=== PATIENT | male | born 1955 | race Caucasian/White ===

== ENCOUNTER 2019-08-14 09:07 | Day surgery (SDC) | payer OTHER ==
--- NOTE | 2019-08-14 07:57 | HP ---
DATE OF SURGERY: 08/14/2019 HISTORY OF PRESENT ILLNESS: The patient is a 64 year-old with no bloody stools, no pain, no change in bowel movements. Family history negative for colon cancer. The patient has history of polyps in the past and is in need of follow up screening colonoscopy. PAST MEDICAL HISTORY: Hypertension, reflux, celiac disease. History of polyps in the past. 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 PAST SURGICAL HISTORY: Hernia repair. Tonsillectomy. Colonoscopy in the past. Prior push enteroscopy for celiac disease in the past. MEDICATIONS: Omeprazole, lisinopril. ALLERGIES: NKDA. FAMILY HISTORY: Heart disease, prostate cancer. Family history negative for colon cancer. SOCIAL HISTORY: He denies smoking. Alcohol use - Two drinks a day, denies abuse. REVIEW OF SYSTEMS: Fourteen systems reviewed. No chest pain or palpitations other systems negative or noncontributory as above and per preadmission questionnaire. PHYSICAL EXAMINATION: GENERAL: No acute distress. HEENT: Sclerae nonicteric. NECK: No JVD. CHEST: Equal excursion, nonlabored breathing. CVS: Regular rate and rhythm. ABDOMEN: Soft, nontender. No peritoneal signs. EXTREMITIES: No significant edema. NEURO: Alert, oriented, moving extremities symmetrically. No gross motor deficits noted. RECTAL: Deferred timed to endoscopy exam. IMPRESSION: History of polyps and in need of follow up screening colonoscopy. I feel he is a candidate. Risks and benefits explained in detail including but not limited to bleeding or infection, risk of bowel injury or perforation possibly requiring open procedure, risk of missed or nondiagnosis or incomplete exam possibly requiring barium enema, other studies or procedures, general risk of anesthesia or sedation, risk of bowel prep but not limited to. He understands and agrees to the planned procedure and will proceed with outpatient follow up screening colonoscopy.
[2019-08-14] MEDS ORDERED: VERSED 5 MG/5 ML IV ONE (09:08)
[2019-08-14] MEDS ORDERED: DEMEROL 50 MG SDV IJ ONE (09:08)
[2019-08-14] MEDS ORDERED: Lactated Ringers 1,000 ML IV SCH (09:30)
[2019-08-14 12:22] VITALS: O2SAT 95
[2019-08-14 13:08] VITALS: BP 129/92; PULSE 91
--- NOTE | 2019-08-15 08:23 | OP ---
SURGERY DATE/TIME: 08/14/2019 1108 PREOPERATIVE DIAGNOSIS: History of polyp, need follow up screening colonoscopy. POSTOPERATIVE DIAGNOSES: 1) Small polyp transverse colon x2. 2) Sigmoid colon x1. 3) Diverticulosis. 4) Fair bowel prep. 5) ASA class II. 6) Withdrawal time 10 minutes. PROCEDURES: 1) Colonoscopy to cecum. 2) Hot biopsy removal transverse colon polyp x2. 3) Hot biopsy removal sigmoid colon early polyp versus hyperplastic lesion x1. SURGEON: Dr. Keith Narvaez. ANESTHESIA: Surgeon monitored IV conscious sedation IV Demerol 5 mg and Versed 4 mg. IV conscious sedation monitoring 15 minutes. ESTIMATED BLOOD LOSS: Minimal. INDICATIONS: As noted above. Risks and benefits explained in detail but not limited to and consent obtained. DESCRIPTION OF PROCEDURE AND FINDINGS: The patient is taken to the operating room. This is an ASA II patient. Continuous pulse oximetry and blood pressure monitoring. He was incrementally sedated with IV Demerol 15 and Versed 2 initially as he was quite lucid he was given additional 15 and 3 for comfortable conscious sedative state. He remained hemodynamically stable with continuous pulse ox and blood pressure monitoring throughout the entire procedure. Digital rectal exam did not reveal any rectal masses. Video colonoscope inserted and passed up the tortuous sigmoid, descending, transverse and ascending colon around to the cecum, appendiceal orifice and valve. Pictures are taken. Prep overall is fair. There is a little bit of liquidy semisolid stool suction irrigated as clear as possible just slightly limiting exam for very tiny lesions. The scope slowly and carefully withdrawn over the next 10 minutes stopping at transverse colon removing a couple small polyps with hot biopsy forceps with brief bursts of cautery. These appeared adenomatous. There was an even smaller one back down in the sigmoid colon hyperplastic versus adenomatous is removed with hot biopsy forceps. Good hemostasis noted. Otherwise he had some diverticulosis and small internal hemorrhoids. There were no signs of any large polyps, masses or obstructing lesions. The scope is withdrawn. The patient tolerated the procedure well. There were no immediate complications. There was no family available to discuss the findings with at this time.
== END 2019-08-14 12:45 | disposition home or self-care (01) ==
LOC: SDC 09:07
PROVIDERS: ATTEND Surgery
DX: Z09 Encounter for follow-up examination after completed treatment for conditions other than malignant neoplasm (principal); Z86.010 Personal history of colon polyps; D12.3 Benign neoplasm of transverse colon; K57.30 Diverticulosis of large intestine without perforation or abscess without bleeding
CPT/HCPCS: 88305; J2175; J2250

== ENCOUNTER 2022-09-21 10:13 | Day surgery (SDC) | payer MEDICARE ==
--- NOTE | 2022-09-21 07:53 | HP ---
DATE OF SURGERY: 09/21/2022 HISTORY OF PRESENT ILLNESS: The patient is a 67-year-old with history of polyps, no bloody stools, no change in bowel movements. No new pain. Family history negative for colon cancer. History of Isabel's and also needs a follow up upper endoscopy as well as follow up screening colonoscopy. PAST MEDICAL HISTORY: Hypertension, reflux, heartburn, hiatal hernia, hyperlipidemia, celiac disease in the past, sleep apnea. Hyponatremia in the past. Osteopenia in the past. PAST SURGICAL HISTORY: T&A. Hernia repair. Colonoscopy in the past. Epidural for cervical pain. Inguinal hernia repair for the past. Upper and lower endoscopy in the past. MEDICATIONS: Geritol, alendronate, simvastatin, omeprazole, lisinopril. ALLERGIES: NKDA. FAMILY HISTORY: Negative for colon cancer. SOCIAL HISTORY: No smoking or alcohol abuse. REVIEW OF SYSTEMS: Fourteen systems reviewed. No chest pain or palpitations. Other systems negative or noncontributory as above and per preadmission questionnaire. PHYSICAL EXAMINATION: BMI 23.78. GENERAL: No acute distress. HEENT: Sclerae nonicteric. EOMI. Oral mucous membranes moist. NECK: No JVD. CHEST: Equal excursion, nonlabored breathing. CVS: Regular rate and rhythm. ABDOMEN: Soft. No peritoneal signs. EXTREMITIES: No significant edema. NEURO: Alert, oriented, moving extremities symmetrically. RECTAL: Deferred timed to endoscopy exam. PSYCH: Appropriate mood and affect. SKIN: Dry. IMPRESSION: 1) History of polyps, needs follow up screening colonoscopy. 2) History of Isabel's in the past, needs follow up upper endoscopy as well. PLAN: He was shown the risk sheet, explained the procedure in detail including but not limited to bleeding or infection, risk of bowel injury or perforation, possibly requiring further procedure, risk of missed or nondiagnosis or incomplete exam possibly requiring barium swallow, barium enema, other studies or procedures. General risk of anesthesia or sedation, risk of bowel prep but not limited to, consent obtained. Will proceed with EGD and colonoscopy as an outpatient.
[2022-09-21] MEDS ORDERED: Lactated Ringers 1,000 ML IV SCH (11:00)
[2022-09-21] MEDS ORDERED: Xylocaine-Mpf 2% 5 Ml Vial ONE (14:07)
[2022-09-21] MEDS ORDERED: Versed 2 MG/2 ML Injection ONE (14:07)
[2022-09-21] MEDS ORDERED: DIPRIVAN 200 MG/20 ML IV ONE (14:07)
[2022-09-21 15:32] VITALS: BP 130/91; PULSE 63; O2SAT 97
--- NOTE | 2022-09-22 08:03 | OP ---
SURGERY DATE/TIME: 09/21/2022 1416 PREOPERATIVE DIAGNOSES: 1) History of polyps in the past, need for follow up screening colonoscopy. 2) History of question of Isabel's in the past, need for follow up upper endoscopy. POSTOPERATIVE DIAGNOSES: 1) ASA Class 3. 2) Erosive gastritis. 3) Short segment of distal esophagus inflammation without apparent long segment of any salmon pink mucosa extending up the esophagus. 4) Gastric polyp. 5) Diverticulosis left colon. 6) Small early polyps versus hyperplastic lesion in the descending colon and rectum. PROCEDURES: 1) EGD with cold biopsy of antrum to evaluate for Helicobacter pylori. 2) Cold biopsy gastric polyp. 3) Cold biopsy distal esophagus to evaluate for chronic inflammation. 4) Cold biopsy mid esophagus, random biopsies mid esophagus. 5) Colonoscopy to cecum, hot biopsy polypectomy small descending colon polyp. 6) Hot biopsy polypectomy of small descending colon polyp. 7) Hot biopsy polypectomy small early polyp versus hyperplastic lesion rectum x2. SURGEON: Dr. Keith Narvaez. ANESTHESIA: MAC. ESTIMATED BLOOD LOSS: Minimal. INDICATIONS: As noted above. Risks and benefits explained in detail and not limited to and consent obtained. DESCRIPTION OF PROCEDURE AND FINDINGS: The patient is taken to the endoscopy room. MAC anesthesia introduced. After official time out and no disagreement with planned procedure, bite block positioned. Video gastroscope easily passed down the esophagus through the patent pylorus to the third portion of the duodenum. Third, second and first portions of duodenum grossly unremarkable. Back in the stomach he did have quite a bit of erythema and congestion, superficial erosions in the stomach consistent with some erosive gastritis. Cold biopsy taken for Helicobacter pylori. He did have a small polyp mid body of the stomach appeared to be more of a glandular polyp smooth polyp. Cold biopsy is taken. Good hemostasis noted. On retroflex, there is no sign of any large hiatal hernia. There was a small polyp on the gastric side of the gastroesophageal junction cold biopsy is taken of this. Good hemostasis noted. Otherwise he had a little bit of islands, a little bit of salmon pink mucosa and nearly above the Z-line, whether this is a normal variation, early inflammation versus early Isabel's. He did not seem to have any long segment of salmon pink mucosa extending up in the esophagus. Cold biopsy is taken of this area. Good hemostasis noted. Some random cold biopsies taken in mid esophagus for further evaluation. Good hemostasis noted. There were no signs of any obvious masses or mucosal lesions. The scope is withdrawn. Attention is then turned to colonoscopy. Digital rectal exam did not reveal any rectal masses. Video colonoscope inserted and passed up the tortuous sigmoid, descending, transverse, ascending colon around to the cecum. Prep overall was fair, liquidy and some semi-solid stool just slightly limiting the exam, a little bit of solid stool. Appendiceal orifice area and valve well visualized and photo documented. Palpation of right upper quadrant confirmed the location. The scope is then carefully withdrawn over the next eight minutes. No signs of any large polyps, masses or obstructing lesions. Suction irrigating the liquidy and semisolid stool as well as possible just slightly limiting the exam for small lesions. In the descending colon there was a small polyp about 2.5 mm in size removed with hot biopsy polypectomy this was grabbed in two pieces. Good hemostasis noted. Scope pulled back to the rectum. There was a couple of early polyps versus hyperplastic lesions removed with hot biopsy forceps. Good hemostasis noted. The scope is withdrawn. The patient tolerated the procedure well. There were no immediate complications. Findings discussed with the family out in the waiting area.
== END 2022-09-21 15:45 | disposition home or self-care (01) ==
LOC: SDC 10:13
PROVIDERS: ATTEND Surgery
DX: Z12.11 Encounter for screening for malignant neoplasm of colon (principal); Z09 Encounter for follow-up examination after completed treatment for conditions other than malignant neoplasm; Z86.010 Personal history of colon polyps; Z87.19 Personal history of other diseases of the digestive system; K29.70 Gastritis, unspecified, without bleeding; K31.7 Polyp of stomach and duodenum; D12.4 Benign neoplasm of descending colon; K62.1 Rectal polyp
CPT/HCPCS: J2250; J2704

== ENCOUNTER 2022-11-16 10:17 | Day surgery (SDC) | payer MEDICARE ==
--- NOTE | 2022-11-16 08:00 | HP ---
DATE OF SURGERY: 11/16/2022 HISTORY OF PRESENT ILLNESS: The patient is a 67-year-old with prior history of polyps. No bloody stools. No new pain. Family history negative for colon cancer. He also has history of Isabel's and needs follow up endoscopy as well as follow up screening colonoscopy. PAST MEDICAL HISTORY: Hypertension. Reflux. Heartburn. He had some Isabel's in the past. Hyperlipidemia. Celiac disease in the past. Gout in the past. PAST SURGICAL HISTORY: T&A. Colonoscopy. Inguinal hernia repair. EGD and colonoscopy in the past. MEDICATIONS: Livatone Plus, Geritol, Ubidecarenone, simvastatin, omeprazole, alendronate, lisinopril for hypertension. ALLERGIES: NKDA. FAMILY HISTORY: Negative for colon cancer. SOCIAL HISTORY: No smoking or alcohol abuse. REVIEW OF SYSTEMS: Fourteen systems reviewed. No chest pain or palpitations. Other systems negative or noncontributory as above and per preadmission questionnaire. PHYSICAL EXAMINATION: VITALS: Height 5'9". BMI 23.78. GENERAL: No acute distress. HEENT: Sclerae nonicteric. EOMI. Oropharynx mucous membranes moist. NECK: No JVD. CHEST: Equal excursion, nonlabored breathing. CVS: Regular rate and rhythm. ABDOMEN: Soft. EXTREMITIES: No significant edema. NEURO: Alert, oriented, moving extremities symmetrically. RECTAL: Deferred timed to endoscopy exam. PSYCH: Appropriate mood and affect. SKIN: Dry. IMPRESSION: History of polyps, needs follow up screening colonoscopy also EGD and history of Isabel's in the past. He was shown the risk sheet, explained the procedure in detail including but not limited to bleeding or infection, risk of bowel injury or perforation, risk of missed or nondiagnosis or incomplete exam possibly requiring barium enema, other studies or procedures. General risk of anesthesia or sedation, risk of bowel prep but not limited to, consent obtained. Will proceed with outpatient EGD and colonoscopy as an outpatient. His postoperative colonoscopy and EGD follow up colonoscopy and possible EGD in three years. He had a new problem of subcutaneous mass on his back question lipoma or other etiology. I recommend excision. General risk of bleeding or infection, risk of hematoma or seroma formation, risk of wound dehiscence possibly requiring packing, risk of aches, pains, burning, numbness. General risk of anesthesia, deep vein thrombosis, pulmonary embolism, pneumonia. He understands and agrees to the planned procedure. Will proceed with excisional biopsy of subcutaneous back mass.
[~2022-11-16 10:17] MED LIST: Lactated Ringers 1,000 ML IV SCH
[2022-11-16] MEDS ORDERED: Lactated Ringers 1,000 ML IV ONE ×2 (10:49→12:57)
[2022-11-16 11:05] LABS: Hematocrit 43.1 % (42-50); Hemoglobin 14.7 g/dL (12.5-18.0); Mean Cell Volume 94.7 fL (78-100); Mean Corpuscular Hemoglobin 32.3 pg (26-32); Mean Corpuscular Hgb Concent. 34.1 g/dL (32-36); Mean Platelet Volume 8.6 fL (7.5-11.0); Platelet Count 255 x10^3/uL (150-450); Red Blood Count 4.55 x10^6/uL (4.1-5.6); Red Cell Distribution Width 12.2 % (11.5-14.0); White Blood Count 5.9 x10^3/uL (4.0-10.5)
[2022-11-16 11:18] LABS: ALBUMIN 4.2 g/dL (3.5-5.0); ALKALINE PHOSPHATASE 84 U/L (38-126); ANION GAP 14.5 MEQ/L (5-15); BLOOD UREA NITROGEN 9 mg/dL (9-20); CHLORIDE 99 mmol/L (98-107); Calcium 8.2 mg/dL (8.4-10.2); Carbon Dioxide 23 mmol/L (22-30); Creatinine 1 0.69 mg/dL (0.66-1.25); EST GLOMERULAR FILTRATION RATE > 60.0 ML/MIN; Glucose 109 mg/dL (74-106); Potassium 4.1 mmol/L (3.5-5.1); SGOT/AST 35 U/L (17-59); SGPT/ALT 34 U/L (0-50); SODIUM 132 mmol/L (137-145); Total Protein 7.5 g/dL (6.3-8.2)
[2022-11-16] MEDS ORDERED: Sodium Chloride 0.9% 1000 ML 1,000 ML ONE (11:40)
[2022-11-16] MEDS ORDERED: Sodium Chloride 0.9% 1000 ML 1,000 ML IV SCH (11:45)
[2022-11-16] MEDS ORDERED: TORAdol 30 mg Injection ONE (12:12)
[2022-11-16] MEDS ORDERED: SUBLIMAZE 100 MCG/2 ML ONE (12:12)
[2022-11-16] MEDS ORDERED: BRIDION 200MG/2ML IV ONE (12:12)
[2022-11-16] MEDS ORDERED: DIPRIVAN 200 MG/20 ML IV ONE (12:12)
[2022-11-16] MEDS ORDERED: Zemuron 100 MG/10 ML ONE (12:12)
[2022-11-16] MEDS ORDERED: Xylocaine-Mpf 2% 5 Ml Vial ONE (12:12)
[2022-11-16] MEDS ORDERED: Zofran 4 MG/2 ML VIAL ONE (12:12)
[2022-11-16] MEDS ORDERED: Decadron 4 MG INJ ONE (12:12)
[2022-11-16] MEDS ORDERED: Sensorcaine 0.25% 10 ML ONE (12:57)
[2022-11-16] MEDS ORDERED: KEFZOL 1 GM ONE (12:58)
[2022-11-16 14:02] VITALS: O2SAT 97
[2022-11-16 14:16] VITALS: BP 127/93; PULSE 67
--- NOTE | 2022-11-17 08:47 | OP ---
SURGERY DATE/TIME: 11/16/2022 1232 PREOPERATIVE DIAGNOSIS: Enlarging subcutaneous back mass or lipoma. POSTOPERATIVE DIAGNOSIS: Subfascial lipomatous density. PROCEDURE: Excisional biopsy of subfascial back lipoma (approximately 5 cm). SURGEON: Keith Narvaez M.D. ANESTHESIA: General. ESTIMATED BLOOD LOSS: Minimal. INDICATIONS: As noted above. Risks and benefits explained in detail but not limited to, consent obtained. The site is confirmed with the patient in the preoperative holding area and marked. DESCRIPTION OF PROCEDURE AND FINDINGS: He is taken to the operating room. He is prepped and draped in usual sterile fashion. It should be noted originally felt to be subcutaneous but this was under the level of the fascia. After placing in lateral position, a transverse incision is made and dissection carried down underneath the level of the fascia. The lipomatous density is carefully dissected off of the underlying tissue under the fascia and passed off. It measured about 5 cm in size. Good hemostasis noted. Fascia is closed with 0 Vicryl. The wound was irrigated out. Flaps mobilized back to the midline. The deep superficial subcu closed to the level of underlying fascia with interrupted 3-0 Prolene. Skin closed with 4-0 Vicryl. Steri-Strips and sterile dressing applied. 0.25% Marcaine local had been injected around the area. The patient tolerated the procedure well. There were no immediate complications. I will discuss the findings with the family out in the waiting area.
== END 2022-11-16 14:38 | disposition home or self-care (01) ==
LOC: SDC 10:17
PROVIDERS: ATTEND Surgery
DX: D17.1 Benign lipomatous neoplasm of skin and subcutaneous tissue of trunk (principal); I10 Essential (primary) hypertension
CPT/HCPCS: 36415; 80053; 85027; 88304; 93005; J0690; J1100; J1885; J2405; J2704; J3010

== ENCOUNTER 2024-04-30 08:45 | Emergency (ER) | payer MEDICARE ==
[2024-04-30 09:00] VITALS: TEMP 98.3; O2SAT 89
--- NOTE | 2024-04-30 09:22 | ERPHSYRPT ---
- History of Present Illness Time Seen by Provider: 04/30/24 09:19 Source: patient Exam Limitations: no limitations Patient Subjective Stated Complaint: c/o right elbow injury Triage Nursing Assessment: Patient brought self to ED with c/o right elbow pain after falling on the ice at home. Patient rates pain 6/10, tender to touch, and pain with some movements. Patient denies hitting his head or LOC. Patient is slightly hypertensive, skin w/n/d, pulses normal, gait steady, doesn't appear to be in any distress at this time. Physician History: c/o right elbow injury due to fall on ice Patient brought self to ED with c/o right elbow pain after falling on the ice at home. Patient rates pain 6/10, tender to touch, and pain with some movements. Patient denies hitting his head or LOC. Patient is slightly hypertensive, doesn't appear to be in any distress at this time. Occurred: just prior to arrival Reason for Fall: slipped (on Ice) Injuries/Pain Location: upper extremity (right elbow and forearm) Loss of Consciousness: no loss of consciousness Severity of Pain-Max: mild Severity of Pain-Current: mild Modifying Factors: Improves With: nothing Associated Symptoms (Fall): denies symptoms Body Map: 1 - area of injury and pain Allergies/Adverse Reactions: No Known Drug Allergies Allergy (Verified 04/30/24 09:01) Home Medications: Lisinopril 10 mg [Zestril 10 MG] 10 mg PO HS 07/19/19 [History] Omeprazole 20 mg PO HS 07/19/19 [History] Alendronate Sodium 70 mg PO WEEKLY 08/26/22 [History] B1/B2/B3/B5/B6/Iron/Meth/Choln [Geritol Tonic] 1 dose PO DAILY 08/26/22 [History] Simvastatin 20Mg [Zocor 20Mg] 40 mg PO DAILY 08/26/22 [History] Calcium Carb/Vitamin D3/Vit K1 [Viactiv 650 mg-12.5 Mcg Chew] 1 tab PO BID 09/21/22 [History] Hydroxyzine HCl 25 mg [Atarax 25 mg] 25 mg PO Q6HPRN PRN 09/21/22 [History] B1/B2/B3/B5/B6/Iron/Meth/Choln [Geritol Tonic] 118 ml PO DAILY 11/16/22 [History] Hx Tetanus, Diphtheria Vaccination/Date Given: Yes Hx Influenza Vaccination/Date Given: Yes (2012) Hx Pneumococcal Vaccination/Date Given: Yes (2010) Travel Risk - International Travel Have you traveled outside of the country in past 3 weeks: No - Emerging Infectious Disease Are you exhibiting symptoms associated with any current EIDs: No - Review of Systems Constitutional: No Fever, No Chills Eyes: No Symptoms Ears, Nose, & Throat: No Symptoms Respiratory: No Cough, No Dyspnea Cardiac: No Chest Pain, No Edema, No Syncope Abdominal/Gastrointestinal: No Abdominal Pain, No Nausea, No Vomiting, No Diarrhea Genitourinary Symptoms: No Dysuria Musculoskeletal: Fall, Injury, No Back Pain, No Neck Pain Skin: No Symptoms, No Rash Neurological: No Dizziness, No Focal Weakness, No Sensory Changes Psychological: No Symptoms Endocrine: No Symptoms Hematologic/Lymphatic: No Symptoms All Other Systems: Reviewed and Negative - Past Medical History Pertinent Past Medical History: Yes Neurological History: Other ENT History: No Pertinent History Cardiac History: Hypertension Respiratory History: Sleep Apnea Endocrine Medical History: No Pertinent History Musculoskeletal History: No Pertinent History GI Medical History: GERD, Other History: No Pertinent History Psycho-Social History: No Pertinent History Male Reproductive Disorders: No Pertinent History Other Medical History: PMH: CPAP AT NIGHT, 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 PSH: R ULNA FRACTURE, TONSILLECTOMY, COLONOSCOPY, LIPOMA REMOVAL - Past Surgical History Past Surgical History: Yes Neuro Surgical History: No Pertinent History Cardiac: No Pertinent History Respiratory: No Pertinent History Gastrointestinal: Hernia Repair, Other Genitourinary: No Pertinent History Musculoskeletal: No Pertinent History Male Surgical History: No Pertinent History Other Surgical History: 1972-tonsillectomy, colonoscopy, HX WINSTON'S ESOPHAGUS. pt states he has had epidural for cervical pain. - Social History Smoking Status: Never smoker Exposure to second hand smoke: No Drug Use: none - Social Determinants of Health Will the patient participate in the screening: Yes Do you worry about a steady place to live?: No Do you have any problems with any of the following?: No known problems In the past 12 months,have you had to go without utilities?: No Transportation Issues: No Has anyone in your support network made you feel unsafe?: No Have you or anyone in your house had to go without enough: No - Nursing Vital Signs Nursing Vital Signs: Initial Vital Signs Temperature 98.3 F 04/30/24 08:49 Respiratory Rate 19 04/30/24 08:49 Blood Pressure 150/103 04/30/24 08:49 O2 Sat by Pulse Oximetry 89 L 04/30/24 08:49 Pain Scale Pain Intensity 6 - Igor Coma Score Best Eye Response (Igor): (4) open spontaneously Best Verbal Response ([place]): (5) oriented Best Motor Response (Igor): (6) obeys commands Igor Total: 15 - Physical Exam General Appearance: no apparent distress, alert Head Injury: no evidence of injury Eye Exam: PERRL/EOMI ENT Exam: airway nml Neck Exam: normal inspection, No tenderness Respiratory/Chest Exam: normal breath sounds, No chest tenderness, No r espiratory distress Cardiovascular Exam: normal heart sounds, regular rate/rhythm Gastrointestinal Exam: soft, No tenderness, No distention, No guarding, No ecchymosis Back Exam: normal inspection, No vertebral tenderness Extremity Exam: normal inspection, normal range of motion, pelvis stable, No d eformities, No lacerations, No limited range of motion, No motor deficit, No pain with movement, No pulse deficit, No sensory deficit Neurologic Exam: alert, oriented x 3, cooperative, sensation nml, No motor deficits Skin Exam: normal color, warm, dry SpO2: 89 Procedures - Splinting Time of Procedure: 09:48 Location of Splint: Right, Elbow Type of Splint: Orthoglass Long Arm Splint Splint Applied By: ED Nurse Pre-Proc Neuro Vasc Exam: normal Post-Proc Neuro Vasc Exam: neurovascular intact - Course Nursing assessment & vital signs reviewed: Yes - Radiology Exams Elbow X-ray Interpretation: Interpreted by me, Reviewed by me Forearm X-ray Interpretation: Interpreted by me, Reviewed by me (Hairline fracture radial head right) Ordered Tests: Active Orders 24 hr Category Date Time Status ELBOW (MINIMUM 3 VIEWS) Stat Exams 04/30/24 09:12 Taken FOREARM Stat Exams 04/30/24 09:12 Taken - Progress Progress: unchanged, pain not gone completely Counseled pt/family regarding: diagnosis, need for follow-up, rad results Medical Desision Making - Diagnostic Testing Diagnostic test were ordered, analyzed, and reviewed by me: Yes Radiological Interpretation: Interpreted by me, Reviewed by me - Risk of complications Minimal Risk: Minimal risk of morbidity - Departure Departure Disposition: Home Clinical Impression: Fracture of radial head, closed Qualifiers: Encounter type: initial encounter Fracture alignment: nondisplaced Laterality: right Qualified Code(s): S52.124A - Nondisplaced fracture of head of right radius, initial encounter for closed fracture Condition: Stable Critical Care Time: No Referrals: TAMIKA TRINH MD [Primary Care Provider] - [facility] [id number] Instructions: Elbow Fracture (DC) Additional Instructions: Discharge/Care Plan ALISIA NAGY was seen on 04/30/24 in the Emergency Room. The patient was counseled regarding Diagnosis,Lab results, Imaging studies, need for follow up and when to return to the Emergency Room. Prescriptions given: Discharge Note I have spoken with the patient and/or caregivers. I have explained the patient's condition, diagnosis and treatment plan based on the information available to me at this time. I have answered the patient's and/or caregiver's questions and addressed any concerns. The patient and/or caregivers have as good understanding of the patient's diagnosis, condition and treatment plan as can be expected at this point. The vital signs have been stable. The patient's condition is stable and appropriate for discharge from the emergency department. The patient will pursue further outpatient evaluation with the primary care physician or other designated or consulting physician as outlined in the discharge instructions. The patient and/or caregivers are agreeable to this plan of care and follow-up instructions have been explained in detail. The patient and/or caregivers have received these instruction. The patient/and or caregivers are aware that any significant change in condition or worsening of symptoms should prompt an immediate return to this or the closest emergency department or call 911. ALISIA NAGY was seen on 04/30/24 n the Emergency Room. At that time you were treated for an emergent condition, during your visit Laboratory, Radiology and/or other procedures may have been ordered. It is very important that you follow-up with your Primary Care Physician TAMIKA TRINH within the next 24-48 hours to review your Emergency Room visit and the final results of testing that was ordered. Some test results such as Urine Cultures, Blood Cultures, and other cultures if ordered will not be finalized for 24-48 hours. If you do not have a Primary Care Provider please call the medical records department at [phone] ext [phone] to obtain a copy of your results or you may sign into our patient portal to obtain these results by visiting us @ [email or web address] and completing the following steps: 1. Click on the Patient Portal link 2. Click the Patient Self Enrollment Link to complete the enrollment form and entering your 3. Once the enrollment form is completed you will receive an email with a temporary ID and password at the email address you provided. 4. Next choose a user name and password. Your user name must be at least 4 characters long and your password must be at least 4 characters long. 5. Choose a security question from the list and provide your answer to the question. If you already have signed into the Health Portal you may access your Health Care Information 21/12 by the following steps: 1. Login to our website @ [email or web address] 2. Enter your original user name and password. FAQS The [facility] Health Portal is an online tool that contains your Lab Results, Radiology Reports, Visit History, Discharge Instructions and Health Summary Lab and Radiology Results will not be available for 72 hours on the portal. The Portal is a secure site, passwords are encryted and URLs are re-written so they cannot be copied and pasted. You and authorized family members are the only ones who can access your Portal. Also there is a timeout feature that protects your information if you leave the Portal page open. If you have technical difficulty please use the Contact Us link on the page this will allow you to submit any questions you have regarding the Portal or you may contact the Medical Record Department at [phone] ext [phone]. Prescriptions: Ketorolac Trometh 10 mg Tab [TORAdol 10 MG TABLET] 10 mg PO QID #20 tablet
[2024-04-30 09:52] VITALS: BP 141/93; PULSE 70; RESP 16
--- NOTE | 2024-04-30 20:29 | XRAY ---
Indication: Pain following fall. Comparison: None 3 view right elbow demonstrates tiny lateral epicondyle heterotopic ossification, degenerative versus sequela old injury/inflammation. Minimal vascular calcifications. No other bony, articular, or soft tissue abnormalities.
--- NOTE | 2024-04-30 20:30 | XRAY ---
Indication: Pain following fall. Comparison: None 2 view right forearm demonstrates mild scattered vascular calcifications. No other bony, articular, or soft tissue abnormalities.
== END 2024-04-30 10:05 | disposition home or self-care (01) ==
LOC: ED 08:45
DX: S52.121A Displaced fracture of head of right radius, initial encounter for closed fracture (principal); W00.0XXA Fall on same level due to ice and snow, initial encounter
CPT/HCPCS: 29105; 73080; 73090; 99283